=== PATIENT | female | born 1975 | race Caucasian/White ===

== ENCOUNTER → 2021-02-04 | Outpatient (CLI) | payer MEDICAID ==
[~2021-02-04] MED LIST: AMOXICILLIN 8751 TAB PO; NORCO 325 MG-51 TAB PO
== END ==
LOC: COL.RAD 12:57
DX: I65.23 Occlusion and stenosis of bilateral carotid arteries (principal)
CPT/HCPCS: Q9967

== ENCOUNTER 2021-02-25 07:10 | Day surgery (SDC) | payer MEDICAID ==
[2021-02-25] VITALS (11 sets, daily range): BP systolic 104–131; BP diastolic 71–81; PULSE 58–71; TEMP 98.1
[~2021-02-25] VITALS: Ht 162.6 cm; Wt 121.1 kg
[2021-02-25 08:21] LABS: HEMATOCRIT 43.6 % (37.0-47.0); HEMOGLOBIN 14.4 g/dl (12.5-16.0); MEAN CELL VOLUME 84 fl (80.0-100.0); MEAN CORPUSCULAR HEMOGLOBIN 28 pg (27-31); MEAN CORPUSCULAR HGB CONC 33 g/dl (33.0-37.0); MEAN PLATELET VOLUME 10.4 fl (7.4-10.4); PLATELET COUNT 280 K/mm3 (130-400)
[2021-02-25 08:29] LABS: INR 1.1 (0.8-3.0); PROTHROMBIN TIME 12.4 SECONDS (9.7-12.8)
[2021-02-25] MEDS ORDERED: LIPITOR 40MG TA40 MG PO (08:29)
[2021-02-25] MEDS ORDERED: ASPIRIN 81M81 MG/TA2 PO (08:30)
[2021-02-25] MEDS ORDERED: VITAMIN D31000 I1 PO (08:30)
[2021-02-25] MEDS ORDERED: [UNRECOGNIZED DRUG - OTHER] PO (08:31)
[2021-02-25 08:33] LABS: CREATININE, serum 0.81 mg/dL (0.57-1.11); POTASSIUM 3.8 mmol/L (3.5-4.5)
--- NOTE | 2021-02-25 09:05 | NUR ---
SEE MERGE DOCUMENTATION FOR MEDICATION ADMINISTRATION AND INTRA/POST PROCEDURE SEDATION ASSESSMENTS.
--- NOTE | 2021-02-25 13:05 | NUR ---
Discharge instructions given to pt.Pt verbalizes understanding.INT removed,cathetr tip intact.Pt escorted out via wheelchair by this nurse.
== END 2021-02-25 14:57 | disposition home or self-care (01) ==
LOC: COL.CAR 07:10
PROVIDERS: Internal Medicine Cardiovascular Disease
DX: R94.39 Abnormal result of other cardiovascular function study (principal)
CPT/HCPCS: C1769; J1644; J2250; J3010; Q9967